=== PATIENT | male | born 1970 ===

== ENCOUNTER 2022-06-04 11:00 | Inpatient (IN) | payer OTHER ==
[~2022-06-04] VITALS: Ht 185.4 cm; Wt 90.7 kg
[2022-06-04] MEDS ORDERED: [UNRECOGNIZED DRUG - OTHER] PO (13:40)
[2022-06-04] MEDS ORDERED: PROT PO (13:41)
[2022-06-04] MEDS ORDERED: PEPCID20 MG PO (13:41)
[2022-06-04] MEDS ORDERED: CARVEDILOL6.25 MG PO (13:41)
[2022-06-04] MEDS ORDERED: GLUMETZA500 MG PO (13:42)
[2022-06-04] MEDS ORDERED: ATIVAN2 M1 PO (13:42)
[2022-06-04] MEDS ORDERED: NASAL MIST126 ML (13:42)
[2022-06-07] MEDS ORDERED: MIRALAX510 GM (11:51)
[2022-06-07] MEDS ORDERED: CLONAZEPAM1 MG (11:51)
[2022-06-07] MEDS ORDERED: GABAPENTIN800 M1 (11:51)
[2022-06-07] MEDS ORDERED: VASOTEC20 MG (11:52)
[2022-06-07] MEDS ORDERED: RESTORIL30 MG (11:52)
[2022-06-07] MEDS ORDERED: PANTOPRAZOLE SO40 MG (11:52)
[2022-06-07] MEDS ORDERED: QUETIAPINE FUM150 MG (11:52)
[2022-06-07] MEDS ORDERED: FENOFIBRATE160 MG (11:52)
[2022-06-07] MEDS ORDERED: VITAMIN D3250 MCG (11:52)
[2022-06-07] MEDS ORDERED: ESOMEPRAZOLE MA20 MG (11:52)
[2022-06-07] MEDS ORDERED: FLUOXETINE HCL40 MG (11:52)
[2022-06-07] MEDS ORDERED: ATORVASTATIN CA10 MG (11:53)
[2022-06-07] MEDS ORDERED: ALENDRONATE SOD70 MG (11:56)
[2022-06-07] MEDS ORDERED: ETODOLAC200 MG (11:56)
[2022-06-10] MEDS ORDERED: PERCOCET 5-3251 EACH PO (12:37)
[2022-06-10] MEDS ORDERED: LEVSIN/SL0.125 MG SL (12:38)
== END 2022-06-10 14:22 | disposition home or self-care (01) | DRG 331 ==
LOC: SURH 06-07 05:00 → O/R 06-07 05:00 → SURG 06-07 09:00 → SURH 06-07 13:35
PROVIDERS: ADMIT Surgery; ATTEND Surgery
PROC: 0DBP4ZZ Excision of Rectum, Percutaneous Endoscopic Approach (ICD-10-PCS; 2022-06-07)
PROC: 0DTU4ZZ Resection of Omentum, Percutaneous Endoscopic Approach (ICD-10-PCS; 2022-06-07)
PROC: 0DJD8ZZ Inspection of Lower Intestinal Tract, Via Natural or Artificial Opening Endoscopic (ICD-10-PCS; 2022-06-07)
PROC: 0DTN4ZZ Resection of Sigmoid Colon, Percutaneous Endoscopic Approach (ICD-10-PCS; principal; 2022-06-07 09:00)
DX: K57.32 Diverticulitis of large intestine without perforation or abscess without bleeding (principal); K66.0 Peritoneal adhesions (postprocedural) (postinfection); R10.9 Unspecified abdominal pain; R19.4 Change in bowel habit; Z20.822 Contact with and (suspected) exposure to COVID-19